=== PATIENT | male | born 1985 | race Caucasian/White ===

== ENCOUNTER 2016-07-30 09:45 | Emergency (ER) | payer BC, OTHER ==
[~2016-07-30] VITALS: Ht 177.8 cm; Wt 98.0 kg
[~2016-07-30 09:45] MED LIST: AUGM875T PO; CLAR10TA13 PO; FLON0.053
[2016-07-30 09:54] VITALS: BP 148/89; PULSE 65; RESP 16; TEMP 97.9; O2SAT 100
[2016-07-30 10:30] VITALS: BP 148/89; PULSE 65; RESP 16; TEMP 97.9; O2SAT 100
[2016-07-30] MEDS ORDERED: CYCL1TAB29 PO (11:05)
--- NOTE | 2016-07-30 11:07 | PD ---
HPI . back pain Chief Complaint: Back/ Neck Pain or Injury Time Seen by Provider: 11:02 Travel History International Travel<30 days: No Contact w/Intl Traveler<30days: No Traveled to known affect area: No History of Present Illness HPI 30-year-old male with history of possible slipped disc here with complaints of lower back pain. Patient/he was followed with chiropractic and told he had L2 issues. He was doing fine until last week when he did some digging in his yard. Now he is complaining of pain in lower back that sometimes radiates into the right lower extremity. Pain is rated 7/10. He denies any bowel or bladder dysfunction. He has no saddle anesthesia. He denies any recent injury. [facility] Past Medical History Arthritis: No Asthma: No Autoimmune Disease: No Blood Disorders: No Anxiety: No Depression: No Heart Rhythm Problems: No Cancer: No Cardiovascular Problems: No High Cholesterol: No Chemotherapy: No Chest Pain: No Congestive Heart Failure: No COPD: No Cerebrovascular Accident: No Diabetes: No Diminished Hearing: No Endocrine: No GERD: No Glaucoma: No Genitourinary: No Headaches: No Hepatitis: No Hiatal Hernia: No Hypertension: No Immune Disorder: No Kidney Stones: No Musculoskeletal: No Neurologic: No Psychiatric: No Respiratory: No Myocardial Infarction: No Radiation Therapy: No Renal Failure: No Seizures: No Sickle Cell Disease: No Sleep Apnea: No Thyroid Disease: No Ulcer: No Tetanus Vaccination: < 5 Years Past Surgical History Surgical History: No Previous Surgery Abdominal Surgery: No AICD: No Cardiac Surgery: No Ear Surgery: No Endocrine Surgery: No Eye Surgery: No Genitourinary Surgery: No Gynecologic Surgery: Yes (VASECTOMY, 2009) Joint Replacement: No Neurologic Surgery: No Oral Surgery: No Pacemaker: No Thoracic Surgery: No Other Surgery: No Social History Alcohol Use: Yes (OCCASSIONAL ) Tobacco Use: No Substance Use: No Allergies-Medications (Allergen,Severity, Reaction): Coded Allergies: No Known Allergies (Verified , PER ADMIT ORDERS, 07/30/16) Reported Meds & Prescriptions Reported Meds & Active Scripts Active Flexeril (Cyclobenzaprine HCl) 10 Mg Tab 10 Mg PO TID Review of Systems General / Constitutional: No: Fever Eyes: No: Visual changes HENT: No: Headaches Cardiovascular: No: Chest Pain or Discomfort Respiratory: No: Shortness of Breath Gastrointestinal: No: Abdominal Pain Genitourinary: No: Dysuria Musculoskeletal: Positive: Pain (back ) Skin: No Rash Neurologic: No: Weakness Psychiatric: No: Depression Endocrine: No: Polydipsia Hematologic/Lymphatic: No: Easy Bruising Physical Exam Narrative GENERAL: AAO x 3, no acute distress, Well-nourished, well-developed patient. SKIN: Warm and dry. No visible rashes or bruising. HEAD: Normocephalic and atraumatic. EYES: No scleral icterus. No injection or drainage. ENT: No nasal drainage noted. Airway patent. NECK: Supple, trachea midline. No JVD. CARDIOVASCULAR: Regular rate and rhythm without murmurs, gallops, or rubs. RESPIRATORY: Breath sounds equal bilaterally. No accessory muscle use. No rhonchi or rales. GASTROINTESTINAL: Abdomen soft, non-tender, nondistended. EXTREMITIES: No cyanosis or edema. BACK: Nontender without obvious deformity. No CVA tenderness. Paraspinal tenderness around L2-L3. PSYCH: AAO x 3, normal affect. Data Data Last Documented VS Vital Signs Date Time Temp Pulse Resp B/P Pulse Ox O2 Delivery O2 Flow Rate FiO2 07/30/16 10:30 97.9 65 16 148/89 100 Orders Orphenadrine Inj (Norflex Inj) (07/30/16 11:15) MDM Medical Decision Making Medical Screen Exam Complete: Yes Emergency Medical Condition: Yes Medical Record Reviewed: Yes Differential Diagnosis Acute on chronic back pain, sciatica, less likely spinal fracture Narrative Course 30-year-old male with history of possible slipped disc here with complaints of lower back pain. Patient/he was followed with chiropractic and told he had L2 issues. He was doing fine until last week when he did some digging in his yard. Now he is complaining of pain in lower back that sometimes radiates into the right lower extremity. Pain is rated 7/10. He denies any bowel or bladder dysfunction. He has no saddle anesthesia. He denies any recent injury. Patient seen and examined. He does have some paraspinal tenderness on the right side. I will go ahead and use course of muscle relaxers. I discussed this with him and he is in agreement. He prefers Flexeril. Advised that he will need to follow-up with primary care provider as he may need physical therapy in the future. Patient verbalized understanding of instructions, questions were answered, and thanked me for their care. I advised them if their condition worsens, please return to the nearest emergency room for further care. Diagnosis Primary Impression: Muscle strain Additional Impression: Sciatica Qualified Code: M54.31 - Sciatica of right side Patient Instructions: General Instructions, Muscle Strain (ED) Additional Instructions: Please return to emergency department if your symptoms return or worsen. Follow up with your primary care provider. Take medications as prescribed. Muscle relaxers can cause drowsiness. Do not drive, swim or operate heavy machinery while using these medications. Use ibuprofen or Tylenol as needed for pain. Med/Other Pt SpecificInfo: Prescription(s) given Scripts Cyclobenzaprine (Flexeril)10 Mg Tab10 Mg PO TID #21 TAB Ref 0 Prov:Genaro Hernandez MD 07/30/16 Disposition: 01 DISCHARGE HOME Condition: Stable Vani Birch Jul 30, 2016 11:07
[2016-07-30] MEDS ORDERED: ORPHENADRINE INJ 60 MG/2 ML AMP IM ONE (11:15)
== END 2016-07-30 11:16 | disposition home or self-care (01) ==
LOC: PHEFT 09:45
DX: M54.31 Sciatica, right side (principal); S39.012A Strain of muscle, fascia and tendon of lower back, initial encounter; X50.0XXA Overexertion from strenuous movement or load, initial encounter; Y93.H2 Activity, gardening and landscaping; Y92.017 Garden or yard in single-family (private) house as the place of occurrence of the external cause; Y99.8 Other external cause status
CPT/HCPCS: 96372; 99283; J2360